=== PATIENT | female | born 1990 | race Caucasian/White ===

== ENCOUNTER → 2019-11-09 09:24 | Outpatient (BNVA) | payer MEDICAID, SELFPAY | PROVIDERS: Family Provider Family Medicine; PCP Family Medicine; Visit Provider Psychiatry & Neurology Psychiatry | DX: F32.9 Major depressive disorder, single episode, unspecified (principal); F33.1 Major depressive disorder, recurrent, moderate; F40.10 Social phobia, unspecified; F12.20 Cannabis dependence, uncomplicated; F33.2 Major depressive disorder, recurrent severe without psychotic features | CPT/HCPCS: 90792 ==

== ENCOUNTER → 2020-01-14 08:30 | Outpatient (BNVA) | payer MEDICAID, SELFPAY | PROVIDERS: Family Provider Family Medicine; PCP Family Medicine; Visit Provider Psychiatry & Neurology Psychiatry | DX: F33.1 Major depressive disorder, recurrent, moderate (principal); Z72.820 Sleep deprivation | CPT/HCPCS: 99214 ==

== ENCOUNTER → 2020-02-16 08:18 | Outpatient (BNVA) | payer MEDICAID, SELFPAY | PROVIDERS: Family Provider Family Medicine; PCP Family Medicine; Visit Provider Counselor Professional | DX: F32.9 Major depressive disorder, single episode, unspecified (principal); F41.9 Anxiety disorder, unspecified; Z72.820 Sleep deprivation | CPT/HCPCS: 90834 ==

== ENCOUNTER → 2020-02-23 08:19 | Outpatient (BNVA) | payer MEDICAID, SELFPAY | PROVIDERS: Family Provider Family Medicine; PCP Family Medicine; Visit Provider Counselor Professional | DX: Z72.820 Sleep deprivation (principal); F41.9 Anxiety disorder, unspecified; F32.9 Major depressive disorder, single episode, unspecified | CPT/HCPCS: 90834 ==

== ENCOUNTER → 2020-03-15 14:30 | Outpatient (BNVA) | payer MEDICAID, SELFPAY | PROVIDERS: Family Provider Family Medicine; PCP Family Medicine; Visit Provider Counselor Professional | DX: Z72.820 Sleep deprivation (principal); F41.9 Anxiety disorder, unspecified; F32.9 Major depressive disorder, single episode, unspecified | CPT/HCPCS: 90834 ==

== ENCOUNTER → 2020-04-05 08:21 | Outpatient (BNVA) | payer MEDICAID, SELFPAY | PROVIDERS: Family Provider Family Medicine; PCP Family Medicine; Visit Provider Counselor Professional | DX: Z72.820 Sleep deprivation (principal); F41.0 Panic disorder [episodic paroxysmal anxiety]; F32.0 Major depressive disorder, single episode, mild | CPT/HCPCS: 90834 ==

== ENCOUNTER → 2020-04-26 09:30 | Outpatient (BNVA) | payer MEDICAID, SELFPAY | PROVIDERS: Family Provider Family Medicine; PCP Family Medicine; Visit Provider Counselor Professional | DX: Z72.820 Sleep deprivation (principal); F32.9 Major depressive disorder, single episode, unspecified; F41.9 Anxiety disorder, unspecified | CPT/HCPCS: 90834 ==

== ENCOUNTER → 2020-05-18 08:47 | Outpatient (BNVA) | payer MEDICAID, SELFPAY | PROVIDERS: Family Provider Family Medicine; PCP Family Medicine; Visit Provider Counselor Professional | DX: Z72.820 Sleep deprivation (principal); F41.9 Anxiety disorder, unspecified; F32.9 Major depressive disorder, single episode, unspecified | CPT/HCPCS: 90834 ==

== ENCOUNTER → 2020-05-31 08:15 | Outpatient (BNVA) | payer MEDICAID, SELFPAY | PROVIDERS: Family Provider Family Medicine; PCP Family Medicine; Visit Provider Counselor Professional | DX: Z72.820 Sleep deprivation (principal); F32.9 Major depressive disorder, single episode, unspecified; F41.9 Anxiety disorder, unspecified | CPT/HCPCS: 90834 ==

== ENCOUNTER → 2020-06-09 08:15 | Outpatient (BNVA) | payer MEDICAID, SELFPAY | PROVIDERS: Family Provider Family Medicine; PCP Family Medicine; Visit Provider Counselor Professional | DX: Z72.820 Sleep deprivation (principal); F41.9 Anxiety disorder, unspecified; F32.9 Major depressive disorder, single episode, unspecified | CPT/HCPCS: 90834 ==

== ENCOUNTER → 2020-06-23 09:41 | Outpatient (BNVA) | payer MEDICAID, SELFPAY | PROVIDERS: Family Provider Family Medicine; PCP Family Medicine; Visit Provider Counselor Professional | DX: Z72.820 Sleep deprivation (principal); F41.9 Anxiety disorder, unspecified; F32.9 Major depressive disorder, single episode, unspecified | CPT/HCPCS: 90834; 90832 ==

== ENCOUNTER → 2020-07-13 10:49 | Outpatient (BNVA) | payer MEDICAID, SELFPAY | PROVIDERS: Family Provider Family Medicine; PCP Family Medicine; Visit Provider Psychiatry & Neurology Psychiatry | DX: F33.1 Major depressive disorder, recurrent, moderate (principal); F40.10 Social phobia, unspecified; Z72.820 Sleep deprivation | CPT/HCPCS: 99214 ==

== ENCOUNTER → 2020-07-27 11:01 | Outpatient (BNVA) | payer MEDICAID, SELFPAY | PROVIDERS: Family Provider Family Medicine; PCP Family Medicine; Visit Provider Counselor Professional | DX: Z72.820 Sleep deprivation (principal); F41.9 Anxiety disorder, unspecified; F32.9 Major depressive disorder, single episode, unspecified | CPT/HCPCS: 90834 ==

== ENCOUNTER → 2021-01-02 18:50 | Outpatient (BNVA) | payer MEDICAID, SELFPAY | PROVIDERS: Family Provider Family Medicine; PCP Family Medicine; Visit Provider Registered Nurse Neonatal Intensive Care | DX: Z20.822 Contact with and (suspected) exposure to COVID-19 (principal) | CPT/HCPCS: 87635 ==

== ENCOUNTER → 2021-10-02 13:43 | Outpatient (BNVA) | payer MEDICAID, SELFPAY | PROVIDERS: Family Provider Family Medicine; Visit Provider Family Medicine | DX: F40.10 Social phobia, unspecified (principal); B36.0 Pityriasis versicolor; K21.9 Gastro-esophageal reflux disease without esophagitis; Z13.6 Encounter for screening for cardiovascular disorders | CPT/HCPCS: 80053; 84443; 85025 ==

== ENCOUNTER → 2024-06-29 13:31 | Outpatient (BNVA) | payer OTHER, SELFPAY | PROVIDERS: Family Provider Family Medicine; PCP Family Medicine; Visit Provider Nurse Practitioner Psychiatric/Mental Health | DX: F41.1 Generalized anxiety disorder (principal); F33.2 Major depressive disorder, recurrent severe without psychotic features; Z03.89 Encounter for observation for other suspected diseases and conditions ruled out | CPT/HCPCS: 80053; 80061; 82306; 83036; 84439; 84443; 85025 ==

== ENCOUNTER → 2024-07-31 14:24 | Outpatient (BNVA) | payer MEDICAID, SELFPAY ==
[2024-07-02 14:51] VITALS: BP 127/66; BMI 37.2
== END ==
PROVIDERS: Family Provider Family Medicine; PCP Family Medicine
DX: R39.9 Unspecified symptoms and signs involving the genitourinary system (principal)
CPT/HCPCS: 81000

== ENCOUNTER → 2024-08-31 13:02 | Outpatient (BNVA) | payer MEDICAID, SELFPAY ==
[2024-07-02 14:51] VITALS: BP 127/66; BMI 37.2
== END ==
PROVIDERS: PCP Family Medicine; Visit Provider Family Medicine
DX: Z01.419 Encounter for gynecological examination (general) (routine) without abnormal findings (principal); R30.0 Dysuria; E55.9 Vitamin D deficiency, unspecified; N89.8 Other specified noninflammatory disorders of vagina; K59.01 Slow transit constipation; M25.562 Pain in left knee
CPT/HCPCS: 81000; 81513; 82306; 87086; 87481; 87491; 87591; 87624; 87661

== ENCOUNTER 2024-09-01 12:03 | Outpatient (CLI) | payer MEDICAID, SELFPAY ==
[2024-07-02 14:51] VITALS: BP 127/66; BMI 37.2
--- NOTE | 2024-09-01 12:08 | XRR_ITS ---
PROCEDURE INFORMATION: Exam: XR Left Knee Exam date and time: 09/01/2024 12:12 PM Age: 34 years old Clinical indication: Left; Posterior lt knee pain. Trouble w/ bending & walking; Additional info: Acute left knee pain TECHNIQUE: Imaging protocol: Radiologic exam of the left knee. Views: 3 views. COMPARISON: No relevant prior studies available. FINDINGS: Bones/joints: No displaced fracture nor dislocation seen. Minimal marginal spurring medial tibial plateau perhaps medial femoral condyle. Perhaps minimal narrowing medial compartment joint space. Slight suprapatellar fluid. Soft tissues: No metallic foreign body seen. XR/XR knee LT 3V* [id number] IMPRESSION: No displaced fracture seen.
== END 2024-09-01 12:04 | disposition home or self-care (01) ==
LOC: RAD 12:05
PROVIDERS: PCP Family Medicine; Visit Provider Family Medicine
DX: M25.562 Pain in left knee (principal); M25.861 Other specified joint disorders, right knee
CPT/HCPCS: 73562

== ENCOUNTER 2024-09-28 21:56 | Emergency (ER) | payer MEDICAID, SELFPAY ==
[2024-07-02 14:51] VITALS: BP 127/66; BMI 37.2
[2024-09-28 21:58] VITALS: BP 130/84; PULSE 103; RESP 20; TEMP 37.4; O2SAT 97; BMI 36.0
--- NOTE | 2024-09-28 23:42 | CTR_ITS ---
PROCEDURE INFORMATION: Exam: CTA Chest With Contrast Exam date and time: 09/29/2024 12:33 AM Age: 34 years old Clinical indication: Shortness of breath; Additional info: SOB, lightheadedness, tachycardia TECHNIQUE: Imaging protocol: Computed tomographic angiography of the chest with contrast. Exam focused on the arteries. 3D rendering (Not supervised by radiologist): MIP and/or 3D reconstructed images were created by the technologist. Radiation optimization: All CT scans at this facility use at least one of these dose optimization techniques: automated exposure control; mA and/or kV adjustment per patient size (includes targeted exams where dose is matched to clinical indication); or iterative reconstruction. Contrast material: OMNI 350; Contrast volume: 100 ml; Contrast route: INTRAVENOUS (IV); COMPARISON: No relevant prior studies available. RADIATION DOSE METRICS: Total DLP (mGy-cm): 416.09 FINDINGS: Pulmonary arteries: Normal. No pulmonary emboli. Aorta: Unremarkable. No aortic aneurysm. No aortic dissection. Lungs: No acute consolidation or pulmonary edema. Superior segment lingula there is a subpleural 5 mm pulmonary nodule. Bandlike atelectasis or scar at the left lung base. Pleural spaces: Unremarkable. No pneumothorax. No pleural effusion. Heart: Unremarkable. No cardiomegaly. No pericardial effusion. Lymph nodes: Unremarkable. No enlarged lymph nodes. Bones/joints: Unremarkable. No acute fracture. Soft tissues: Unremarkable. CT/CT angio chest PE protcl [id number] IMPRESSION: 1. No acute intrathoracic abnormalities. 2. Lingular 5 mm pulmonary nodule. Per Fleischner society criteria, optional follow-up CT in 12 months if patient is high risk.
[2024-09-28 23:43] VITALS: BP 121/91; BP 128/76; BP 137/83; PULSE 103; PULSE 115; PULSE 99
--- NOTE | 2024-09-28 23:43 | ECG_ITS ---
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 Measurements Intervals [place] Rate: 111 P: 24 HI: 127 QRS: 18 QRSD: 86 T: 4 QT: 313 QTc: 426 Interpretive Statements SINUS TACHYCARDIA NONSPECIFIC ST & T-WAVE ABNORMALITY ABNORMAL RHYTHM ECG No previous ECG available for comparison Electronically Signed On 09-29-2024 16:46:56 CDT by Melani Jacobs M.D. [id number]
[2024-09-28 23:51] LABS: Hematocrit 37.8 % (36-47); Hemoglobin 11.80 g/dL (11.27-16.99); Mean Corpuscular HGB Conc 31.2 g/dL (30-55); Mean Corpuscular Hemoglobin 26.9 pg (27-33); Mean Corpuscular Volume 86.1 fl (85-98); Nucleated Red Blood Cells % 0 %; Platelet Count 322 10^3/cmm (157-399); Red Blood Count 4.39 10^6/uL (3.85-5.65); White Blood Count 10.26 10^3/uL (3.29-11.43)
[2024-09-29 00:05] VITALS: BP 128/76; PULSE 91; RESP 18; O2SAT 99
[2024-09-29 00:05] LABS: Troponin(5th) Baseline < 6 ng/L (0-10)
[2024-09-29 00:13] LABS: Procalcitonin 0.04 ng/mL (0-0.5); Thyroid Stimulating Hormone 4.42 uIU/mL (0.27-4.20)
[2024-09-29 00:24] LABS: Alanine Aminotransferase 14 U/L (0-33); Albumin Level 4.1 g/dL (3.5-5.2); Alkaline Phosphatase 80 U/L (35-105); Anion Gap 19.2 (5-19); Aspartate Amino Transferase 11 U/L (0-32); Blood Urea Nitrogen 11 mg/dL (6-20); Calcium 9.5 mg/dL (8.5-10.5); Carbon Dioxide 23 mmol/L (22-29); Chloride 99 mmol/L (98-107); Creatinine Clr Calc Pharmacy 121.9291; Globulin 3.1 g/dL (1.3-4.6); Glucose 110 mg/dL (65-115); Magnesium 2.3 mg/dL (1.7-2.3); Osmolality Calculated 284 mOsm/kg (285-295); Potassium 4.2 mmol/L (3.5-5.1); Sodium 137 mmol/L (136-145); Total Protein 7.2 g/dL (6.6-8.7)
[2024-09-29] MEDS: iohexol 350 mg/mL 500 mL Btl (per mL) IV (00:34)
[2024-09-29 00:37] LABS: Lactic Sepsis W/Reflex 1.5 mmol/L (0.5-2.2)
[2024-09-29 00:51] LABS: Add Urine Microscopic? YES; Glucose Urine UA Negative (Normal); Nitrate Urine Negative (Negative)
[2024-09-29 00:52] LABS: Specific Gravity, Urine 1.032 (1.005-1.030)
[2024-09-29 01:31] LABS: Troponin 5 2HR < 6.0 ng/L (0-10); Troponin 5 2HR Delta 0 ABS# (0-10)
[2024-09-29 02:37] VITALS: BP 147/71; PULSE 90; RESP 20; O2SAT 98
[2024-09-29 04:06] VITALS: BP 138/81; PULSE 86; RESP 20; O2SAT 96
--- NOTE | 2024-09-29 04:08 | W.ED.SOB ---
Documented by User: Bebeto Farris MD 09/29/24 05:53 HPI - SOB/Dyspnea General: Chief Complaint: Shortness of Breath/Dyspnea Stated Complaint: SOB\Chest Hurts from Cough Time Seen by Provider: 09/28/24 22:54 History of Present Illness: HPI Narrative: 34-yo F with recent bronchitis and sinus infection completed antibiotics yet reports worsening cough productive of green/yellow sputum, 5/10 ?cats sitting on me? chest pain, and progressive SOB over several days. Additional Sx: fatigue, persistent hot flashes despite indoor AC 67 ?F, dizziness/near-syncope when exposed to heat, palpitations, headaches escalating to migraine, and four days of diarrhea. Describes episodic light-headedness severe enough that legs ?felt like jelly? while shopping on 08/23. Notes constant hunger pains unrelieved by eating. Reports heavy menses first two days each cycle. Denies smoking, alcohol, or drug use. No prior VTE, surgery, or recent travel. Family history of diabetes; father of [place]. O2 sat 98% and BP ?right on par? per provider; triage vitals show tachycardia, mild tachypnea, T 99.3 ?F. Concerned something serious is being missed; requests thorough evaluation. Related Data Previous Rx's ?Medication ?Instructions ?Recorded cholecalciferol (vitamin D3) 1,250 1,250 mcg PO .once weekly #8 caps 06/30/24 mcg (50,000 unit) capsule polyethylene glycol 3350 17 4 g PO BID #476 grams 07/19/24 gram/dose oral powder (Miralax) buspirone 10 mg tablet 20 mg (2 x 10 mg) PO BID #120 tabs 08/24/24 duloxetine 30 mg capsule,delayed 30 mg PO .q am #30 caps 08/24/24 release duloxetine 60 mg capsule,delayed 60 mg PO .q am #30 caps 08/24/24 release hydroxyzine pamoate 50 mg capsule 50 mg PO BID PRN anxiety #30 caps 08/24/24 ibuprofen 600 mg tablet 600 mg PO TID PRN pain #90 tabs 08/31/24 linaclotide 290 mcg capsule 290 mcg PO QAM #30 caps 08/31/24 (Linzess) metronidazole 500 mg tablet 500 mg PO BID #14 tabs 09/03/24 doxycycline hyclate 100 mg tablet 100 mg PO BID 7 days #14 tabs 09/14/24 prednisone 20 mg tablet 20 mg PO DAILY 5 days #5 tabs 09/14/24 Allergies Allergy/AdvReac Type Severity Reaction Status Date / Time escitalopram (From Lexapro) Allergy ADR-Headach Verified 09/28/24 22:08 e PFSH ED PFSH: Medical History (Updated 09/29/24 @ 06:11 by Federico Cooley MD) Vitamin D insufficiency Psychiatric care Complicated bereavement Problems related to lack of adequate sleep Social anxiety disorder MDD (major depressive disorder) Social History Smoking and tobacco/nicotine status: never used tobacco/nicotine Alcohol intake: never Substance/Drug Use: never Adopted: No Caregiver/support person: No Lives independently: No Household members: children Housing: House Marital status: Single Number of children: 2 Highest education level completed: 11th Grade service: No Current occupational status: unemployed Current occupational exposures/hazards: No Pets and animals: Yes Pets & animals: cat(s) and dog(s) Leisure activites: other Leisure activities details: watch TV Sexually active: Yes Current gender identity: Female Inocencia/Zoroastrian: Spiritism Special inocencia needs: No Agree to transfusion: Yes Female Reproductive History: Date of last menstrual period: 09/14/24 Para: 3 Physical Exam Const: COMMON NORMALS: no acute distress, patient oriented x3 and alert HENMT: COMMON NORMALS: normocephalic and atraumatic HEAD & SCALP: normocephalic and atraumatic Eye: COMMON NORMALS: Equal, round and reactive pupils present, EOMs intact bilaterally and no scleral icterus PUPIL: Yes Equal, round and reactive pupils present Resp: COMMON NORMALS: normal respiratory effort and No retractions Cardio: COMMON NORMALS: regular rate, regular rhythm and No murmurs present (Cardio) RATE: regular rate RHYTHM: regular rhythm GI: COMMON NORMALS: Normal to inspection, nondistended, normoactive bowel sounds present, Soft to palpation and non-tender PALPATION: Yes Soft to palpation Neuro: COMMON NORMALS: patient oriented x3 SENSORIUM/ORIENTATION: Yes alert Skin: COMMON NORMALS: no rashes or lesions noted GENERAL SKIN EXAM: no rashes or lesions noted Course Vital Signs: Vital signs: Vital Signs Temperature 99.3 F 09/28/24 21:58 Pulse Rate 80 09/29/24 06:08 Respiratory Rate 21 H 09/29/24 06:08 Blood Pressure 116/69 09/29/24 06:08 Pulse Oximetry 97 09/29/24 06:08 Oxygen Delivery Me thod Room Air 09/28/24 21:58 MDM - SOB/Dyspnea Medical Decision Making In summary, patient is a 34-year-old female from home seen for almost 2 months of cough additionally, she gets near syncopal with exertion and with coughing. The near syncope causes her significant concern and she is a and has young children in the home. Workup today is largely noncontributory. She arrived with a temperature just below a fever and tachycardia just above [address] of the chest does not show evidence of PE or pneumonia. White blood cell count is not elevated. Respiratory pathogen panel is negative. Procalcitonin is negative. Blood cultures were drawn. I do not detect emergent process but and concerned about her symptoms and contacted the hospitalist service to see if they felt admission would be advisable. Her symptoms may be cardiac in nature and perhaps echocardiogram could be beneficial. Pertinent details of the case were shared with the oncoming emergency physician who will help facilitate ultimate disposition once hospitalist has weighed in on the case. Lab Data 09/28/24 23:00 09/28/24 23:00 Labs/Radiology: Radiology Impressions Chest CTA 09/28/24 23:42 IMPRESSION: 1. No acute intrathoracic abnormalities. 2. Lingular 5 mm pulmonary nodule. Per Fleischner society criteria, optional follow-up CT in 12 months if patient is high risk. Laboratory Results WBC 10.26 10^3/uL (3.29-11.43) 09/28/24 23:00 RBC 4.39 10^6/uL (3.85-5.65) 09/28/24 23:00 Hgb 11.80 g/dL (11.27-16.99) 09/28/24 23:00 Hct 37.8 % (36-47) 09/28/24 23:00 MCV 86.1 fl (85-98) 09/28/24 23:00 MCH 26.9 pg (27-33) L 09/28/24 23:00 MCHC 31.2 g/dL (30-55) 09/28/24 23:00 RDW 14.3 % (12.1-15.1) 09/28/24 23:00 Plt Count 322 10^3/cmm (157-399) 09/28/24 23:00 MPV 10.2 fL (7.4-10.4) 09/28/24 23:00 Neut % (Auto) 72.4 % 09/28/24 23:00 Lymph % (Auto) 19.3 % 09/28/24 23:00 Sioux % (Auto) 5.8 % 09/28/24 23:00 Eos % (Auto) 1.7 % 09/28/24 23:00 Baso % (Auto) 0.4 % 09/28/24 23:00 Neut # (Auto) 7.44 10^3/uL (1.8-7.7) 09/28/24 23:00 Lymph # (Auto) 2.0 10^3/uL (0.8-4.8) 09/28/24 23:00 [place]oux # (Auto) 0.6 10^3/uL (0.2-0.9) 09/28/24 23:00 Eos # (Auto) 0.2 10^3/uL (0.0-0.8) 09/28/24 23:00 Baso # (Auto) 0.0 10^3/uL (0.0-0.1) 09/28/24 23:00 Nucleated RBC % (auto) 0 % 09/28/24 23:00 Nucleated RBCs # 0.0 /100WBC 09/28/24 23:00 Sodium 137 mmol/L (136-145) 09/28/24 23:00 Potassium 4.2 mmol/L (3.5-5.1) 09/28/24 23:00 Chloride 99 mmol/L (98-107) 09/28/24 23:00 Carbon Dioxide 23 mmol/L (22-29) 09/28/24 23:00 Anion Gap 19.2 (5-19) H 09/28/24 23:00 BUN 11 mg/dL (6-20) 09/28/24 23:00 Creatinine 0.8 mg/dL (0.5-0.9) 09/28/24 23:00 GFR Calculation 81.6 mL/min (90-130) L 09/28/24 23:00 Glucose 110 mg/dL (65-115) 09/28/24 23:00 Calculated Osmolality 284 mOsm/kg (285-295) L 09/28/24 23:00 Lactic Acid 1.5 mmol/L (0.5-2.2) 09/28/24 23:00 Calcium 9.5 mg/dL (8.5-10.5) 09/28/24 23:00 Phosphorus 3.7 mg/dL (2.5-4.5) 09/28/24 23:00 Magnesium 2.3 mg/dL (1.7-2.3) 09/28/24 23:00 Total Bilirubin 0.2 mg/dL (0.15-1.2) 09/28/24 23:00 AST 11 U/L (0-32) 09/28/24 23:00 ALT 14 U/L (0-33) 09/28/24 23:00 Alkaline Phosphatase 80 U/L (35-105) 09/28/24 23:00 Troponin T Baseline < 6 ng/L (0-10) 09/28/24 23:00 Troponin T 120 Minute < 6.0 ng/L (0-10) 09/29/24 01:05 Delta Troponin T 0 ABS# (0-10) 09/29/24 01:05 Total Protein 7.2 g/dL (6.6-8.7) 09/28/24 23:00 Albumin 4.1 g/dL (3.5-5.2) 09/28/24 23:00 Globulin 3.1 g/dL (1.3-4.6) 09/28/24 23:00 Procalcitonin 0.04 ng/mL (0-0.5) 09/28/24 23:00 TSH 4.42 uIU/mL (0.27-4.20) H 09/28/24 23:00 Urine Color Yellow (Yellow) 09/29/24 00:13 Urine Appearance Cloudy (CLEAR) A 09/29/24 00:13 Urine pH 5.0 (5-7) 09/29/24 00:13 Ur Specific Westhoff 1.032 (1.005-1.030) H 09/29/24 00:13 Urine Protein Trace (Negative) A 09/29/24 00:13 Urine Glucose (UA) Negative (Normal) 09/29/24 00:13 Urine Ketones Trace (Negative) 09/29/24 00:13 Urine Blood Negative (Negative) 09/29/24 00:13 Urine Nitrate Negative (Negative) 09/29/24 00:13 Urine Bilirubin Negative (Negative) 09/29/24 00:13 Urine Urobilinogen 1.0 mg/dL (Negative) 09/29/24 00:13 Ur Leukocyte Esterase Negative (Negative) 09/29/24 00:13 Urine RBC 0-2 /hpf (0-2) 09/29/24 00:13 Urine WBC 0-5 /hpf (0-5) 09/29/24 00:13 Ur Squamous Epith Cells 6-10 /hpf (0-5) 09/29/24 00:13 Amorphous Sediment Not Reportable 09/29/24 00:13 Urine Bacteria None seen /hpf (NONE) 09/29/24 00:13 Hyaline Casts 1.65 /lpf 09/29/24 00:13 Adenovirus (PCR) Not detected (NOT DETECT) 09/29/24 02:26 C. pneumoniae DNA (PCR) Not detected (NOT DETECT) 09/29/24 02:26 Coronavirus 229E (PCR) Not detected (NOT DETECT) 09/29/24 02:26 Monoscreen Negative (Negative) 09/28/24 23:00 Human Metapneumovir PCR Not detected (NOT DETECT) 09/29/24 02:26 Influenza A (H1) PCR Not detected (NOT DETECT) 09/29/24 02:26 Influ A (H1/09) PCR Not detected (NOT DETECT) 09/29/24 02:26 Influenza A (H3) PCR Not detected (NOT DETECT) 09/29/24 02:26 Influenza Type A (PCR) Not detected (NOT DETECT) 09/29/24 02:26 Influenza Type B (PCR) Not detected (NOT DETECT) 09/29/24 02:26 M. pneumoniae (PCR) Not detected (NOT DETECT) 09/29/24 02:26 Parainfluenza 1 (PCR) Not detected (NOT DETECT) 09/29/24 02:26 Parainfluenza 2 (PCR) Not detected (NOT DETECT) 09/29/24 02:26 Parainfluenza 3 (PCR) Not detected (NOT DETECT) 09/29/24 02:26 Parainfluenza 4 (PCR) Not detected (NOT DETECT) 09/29/24 02:26 RSV Type A (PCR) Not detected (NOT DETECT) 09/29/24 02:26 RSV Type B (PCR) Not detected (NOT DETECT) 09/29/24 02:26 Entero/Rhino (PCR) Not detected (NOT DETECT) 09/29/24 02:26 SARS-CoV-2 (PCR) Not detected (NOT DETECT) 09/29/24 02:26 EKG Data EKG 1: Interpretation: Time?0011?sinus rhythm, rate of 88, no ST segment elevation or depression, no T wave inversions, intervals within normal limits. QTc = 397 Discharge Plan Discharge Patient Disposition: Home Clinical Impression: Upper respiratory infection Condition: Stable Prescriptions: No Action prednisone 20 mg tablet 20 mg PO DAILY 5 Days Qty: 5 0RF doxycycline hyclate 100 mg tablet 100 mg PO BID 7 Days Qty: 14 0RF polyethylene glycol 3350 [Miralax] 17 gram/dose powder 4 g PO BID Qty: 476 0RF ibuprofen 600 mg tablet 600 mg PO TID PRN (Reason: pain) Qty: 90 0RF Rx Instructions: Take with food Linzess 290 mcg capsule 290 mcg PO QAM Qty: 30 1RF hydroxyzine pamoate 50 mg capsule 50 mg PO BID PRN (Reason: anxiety) Qty: 30 3RF Rx Instructions: Take one capsule by mouth twice daily, if needed for anxiety duloxetine 60 mg capsule,delayed release(DR/EC) 60 mg PO .q am Qty: 30 1RF Rx Instructions: Take one capsule every AM with the 30 mg dose duloxetine 30 mg capsule,delayed release(DR/EC) 30 mg PO .q am Qty: 30 1RF Rx Instructions: Take one capsule every AM with the 60 mg dose buspirone 10 mg tablet 20 mg PO BID Qty: 120 1RF Rx Instructions: Take two tablets twice a day- noon and evening cholecalciferol (vitamin D3) 1,250 mcg (50,000 unit) capsule 1,250 mcg PO .once weekly Qty: 8 0RF Rx Instructions: Tale one capsule by mouth once a week for eight weeks metronidazole 500 mg tablet 500 mg PO BID Qty: 14 0RF Discharge Orders: Discharge ED (Routine); Ordered 09/29/24 Ordered By: Federico Cooley Referrals: Sparkle Oh DO [Primary Care Provider, Family Practice] - 4-7 days Discharge Diet: Advance as tolerated Discharge Activity: Resume usual activity Patient Instructions: Upper Respiratory Infection (ED) Print Language: Latvian Coding Level of Care Code ED Vending Machine Mechanic for Chg Fwd Documented by User: Federico Cooley MD 09/29/24 06:23 HPI - SOB/Dyspnea General: Chief Complaint: Shortness of Breath/Dyspnea Stated Complaint: SOB\Chest Hurts from Cough Time Seen by Provider: 09/28/24 22:54 Related Data Previous Rx's ?Medication ?Instructions ?Recorded cholecalciferol (vitamin D3) 1,250 1,250 mcg PO .once weekly #8 caps 06/30/24 mcg (50,000 unit) capsule polyethylene glycol 3350 17 4 g PO BID #476 grams 07/19/24 gram/dose oral powder (Miralax) buspirone 10 mg tablet 20 mg (2 x 10 mg) PO BID #120 tabs 08/24/24 duloxetine 30 mg capsule,delayed 30 mg PO .q am #30 caps 08/24/24 release duloxetine 60 mg capsule,delayed 60 mg PO .q am #30 caps 08/24/24 release hydroxyzine pamoate 50 mg capsule 50 mg PO BID PRN anxiety #30 caps 08/24/24 ibuprofen 600 mg tablet 600 mg PO TID PRN pain #90 tabs 08/31/24 linaclotide 290 mcg capsule 290 mcg PO QAM #30 caps 08/31/24 (Linzess) metronidazole 500 mg tablet 500 mg PO BID #14 tabs 09/03/24 doxycycline hyclate 100 mg tablet 100 mg PO BID 7 days #14 tabs 09/14/24 prednisone 20 mg tablet 20 mg PO DAILY 5 days #5 tabs 09/14/24 Allergies Allergy/AdvReac Type Severity Reaction Status Date / Time escitalopram (From Lexapro) Allergy ADR-Headach Verified 09/28/24 22:08 e PFSH ED PFSH: Medical History (Updated 09/29/24 @ 06:11 by Federico Cooley MD) Vitamin D insufficiency Psychiatric care Complicated bereavement Problems related to lack of adequate sleep Social anxiety disorder MDD (major depressive disorder) Social History Smoking and tobacco/nicotine status: never used tobacco/nicotine Alcohol intake: never Substance/Drug Use: never Adopted: No Caregiver/support person: No Lives independently: No Household members: children Housing: House Marital status: Single Number of children: 2 Highest education level completed: 11th Grade service: No Current occupational status: unemployed Current occupational exposures/hazards: No Pets and animals: Yes Pets & animals: cat(s) and dog(s) Leisure activites: other Leisure activities details: watch TV Sexually active: Yes Current gender identity: Female Inoecncia/Zoroastrian: Spiritism Special inocencia needs: No Agree to transfusion: Yes Course Vital Signs: Vital signs: Vital Signs Temperature 99.3 F 09/28/24 21:58 Pulse Rate 80 09/29/24 06:08 Respiratory Rate 21 H 09/29/24 06:08 Blood Pressure 116/69 09/29/24 06:08 Pulse Oximetry 97 09/29/24 06:08 Oxygen Delivery Me thod Room Air 09/28/24 21:58 MDM - SOB/Dyspnea Medical Decision Making In summary, patient is a 34-year-old female from home seen for almost 2 months of cough additionally, she gets near syncopal with exertion and with coughing. The near syncope causes her significant concern and she is a and has young children in the home. Workup today is largely noncontributory. She arrived with a temperature just below a fever and tachycardia just above [address] of the chest does not show evidence of PE or pneumonia. White blood cell count is not elevated. Respiratory pathogen panel is negative. Procalcitonin is negative. Blood cultures were drawn. I do not detect emergent process but and concerned about her symptoms and contacted the hospitalist service to see if they felt admission would be advisable. Her symptoms may be cardiac in nature and perhaps echocardiogram could be beneficial. Pertinent details of the case were shared with the oncoming emergency physician who will help facilitate ultimate disposition once hospitalist has weighed in on the case. Patient seen by hospitalist blood work is normal no signs of infection she feels improved she is to follow-up with her PCP return if worsening. Lab Data 09/28/24 23:00 09/28/24 23:00 Labs/Radiology: Radiology Impressions Chest CTA 09/28/24 23:42 IMPRESSION: 1. No acute intrathoracic abnormalities. 2. Lingular 5 mm pulmonary nodule. Per Fleischner society criteria, optional follow-up CT in 12 months if patient is high risk. Laboratory Results WBC 10.26 10^3/uL (3.29-11.43) 09/28/24 23:00 RBC 4.39 10^6/uL (3.85-5.65) 09/28/24 23:00 Hgb 11.80 g/dL (11.27-16.99) 09/28/24 23:00 Hct 37.8 % (36-47) 09/28/24 23:00 MCV 86.1 fl (85-98) 09/28/24 23:00 MCH 26.9 pg (27-33) L 09/28/24 23:00 MCHC 31.2 g/dL (30-55) 09/28/24 23:00 RDW 14.3 % (12.1-15.1) 09/28/24 23:00 Plt Count 322 10^3/cmm (157-399) 09/28/24 23:00 MPV 10.2 fL (7.4-10.4) 09/28/24 23:00 Neut % (Auto) 72.4 % 09/28/24 23:00 Lymph % (Auto) 19.3 % 09/28/24 23:00 Sioux % (Auto) 5.8 % 09/28/24 23:00 Eos % (Auto) 1.7 % 09/28/24 23:00 Baso % (Auto) 0.4 % 09/28/24 23:00 Neut # (Auto) 7.44 10^3/uL (1.8-7.7) 09/28/24 23:00 Lymph # (Auto) 2.0 10^3/uL (0.8-4.8) 09/28/24 23:00 Sioux # (Auto) 0.6 10^3/uL (0.2-0.9) 09/28/24 23:00 Eos # (Auto) 0.2 10^3/uL (0.0-0.8) 09/28/24 23:00 Baso # (Auto) 0.0 10^3/uL (0.0-0.1) 09/28/24 23:00 Nucleated RBC % (auto) 0 % 09/28/24 23:00 Nucleated RBCs # 0.0 /100WBC 09/28/24 23:00 Sodium 137 mmol/L (136-145) 09/28/24 23:00 Potassium 4.2 mmol/L (3.5-5.1) 09/28/24 23:00 Chloride 99 mmol/L (98-107) 09/28/24 23:00 Carbon Dioxide 23 mmol/L (22-29) 09/28/24 23:00 Anion Gap 19.2 (5-19) H 09/28/24 23:00 BUN 11 mg/dL (6-20) 09/28/24 23:00 Creatinine 0.8 mg/dL (0.5-0.9) 09/28/24 23:00 GFR Calculation 81.6 mL/min (90-130) L 09/28/24 23:00 Glucose 110 mg/dL (65-115) 09/28/24 23:00 Calculated Osmolality 284 mOsm/kg (285-295) L 09/28/24 23:00 Lactic Acid 1.5 mmol/L (0.5-2.2) 09/28/24 23:00 Calcium 9.5 mg/dL (8.5-10.5) 09/28/24 23:00 Phosphorus 3.7 mg/dL (2.5-4.5) 09/28/24 23:00 Magnesium 2.3 mg/dL (1.7-2.3) 09/28/24 23:00 Total Bilirubin 0.2 mg/dL (0.15-1.2) 09/28/24 23:00 AST 11 U/L (0-32) 09/28/24 23:00 ALT 14 U/L (0-33) 09/28/24 23:00 Alkaline Phosphatase 80 U/L (35-105) 09/28/24 23:00 Troponin T Baseline < 6 ng/L (0-10) 07/15/25 23:00 Troponin T 120 Minute < 6.0 ng/L (0-10) 09/29/24 01:05 Delta Troponin T 0 ABS# (0-10) 09/29/24 01:05 Total Protein 7.2 g/dL (6.6-8.7) 09/28/24 23:00 Albumin 4.1 g/dL (3.5-5.2) 09/28/24 23:00 Globulin 3.1 g/dL (1.3-4.6) 09/28/24 23:00 Procalcitonin 0.04 ng/mL (0-0.5) 09/28/24 23:00 TSH 4.42 uIU/mL (0.27-4.20) H 09/28/24 23:00 Urine Color Yellow (Yellow) 09/29/24 00:13 Urine Appearance Cloudy (CLEAR) A 09/29/24 00:13 Urine pH 5.0 (5-7) 09/29/24 00:13 Ur Specific Westhoff 1.032 (1.005-1.030) H 09/29/24 00:13 Urine Protein Trace (Negative) A 09/29/24 00:13 Urine Glucose (UA) Negative (Normal) 09/29/24 00:13 Urine Ketones Trace (Negative) 09/29/24 00:13 Urine Blood Negative (Negative) 09/29/24 00:13 Urine Nitrate Negative (Negative) 09/29/24 00:13 Urine Bilirubin Negative (Negative) 09/29/24 00:13 Urine Urobilinogen 1.0 mg/dL (Negative) 09/29/24 00:13 Ur Leukocyte Esterase Negative (Negative) 09/29/24 00:13 Urine RBC 0-2 /hpf (0-2) 09/29/24 00:13 Urine WBC 0-5 /hpf (0-5) 09/29/24 00:13 Ur Squamous Epith Cells 6-10 /hpf (0-5) 09/29/24 00:13 Amorphous Sediment Not Reportable 09/29/24 00:13 Urine Bacteria None seen /hpf (NONE) 09/29/24 00:13 Hyaline Casts 1.65 /lpf 09/29/24 00:13 Adenovirus (PCR) Not detected (NOT DETECT) 09/29/24 02:26 C. pneumoniae DNA (PCR) Not detected (NOT DETECT) 09/29/24 02:26 Coronavirus 229E (PCR) Not detected (NOT DETECT) 09/29/24 02:26 Monoscreen Negative (Negative) 09/28/24 23:00 Human Metapneumovir PCR Not detected (NOT DETECT) 09/29/24 02:26 Influenza A (H1) PCR Not detected (NOT DETECT) 09/29/24 02:26 Influ A (H1/09) PCR Not detected (NOT DETECT) 09/29/24 02:26 Influenza A (H3) PCR Not detected (NOT DETECT) 09/29/24 02:26 Influenza Type A (PCR) Not detected (NOT DETECT) 09/29/24 02:26 Influenza Type B (PCR) Not detected (NOT DETECT) 09/29/24 02:26 M. pneumoniae (PCR) Not detected (NOT DETECT) 09/29/24 02:26 Parainfluenza 1 (PCR) Not detected (NOT DETECT) 09/29/24 02:26 Parainfluenza 2 (PCR) Not detected (NOT DETECT) 09/29/24 02:26 Parainfluenza 3 (PCR) Not detected (NOT DETECT) 09/29/24 02:26 Parainfluenza 4 (PCR) Not detected (NOT DETECT) 09/29/24 02:26 RSV Type A (PCR) Not detected (NOT DETECT) 09/29/24 02:26 RSV Type B (PCR) Not detected (NOT DETECT) 09/29/24 02:26 Entero/Rhino (PCR) Not detected (NOT DETECT) 09/29/24 02:26 SARS-CoV-2 (PCR) Not detected (NOT DETECT) 09/29/24 02:26 All radiology interpretation(s) finalized by discharge Discharge Plan Discharge Patient Disposition: Home Clinical Impression: Upper respiratory infection Condition: Stable Prescriptions: No Action prednisone 20 mg tablet 20 mg PO DAILY 5 Days Qty: 5 0RF doxycycline hyclate 100 mg tablet 100 mg PO BID 7 Days Qty: 14 0RF polyethylene glycol 3350 [Miralax] 17 gram/dose powder 4 g PO BID Qty: 476 0RF ibuprofen 600 mg tablet 600 mg PO TID PRN (Reason: pain) Qty: 90 0RF Rx Instructions: Take with food Linzess 290 mcg capsule 290 mcg PO QAM Qty: 30 1RF hydroxyzine pamoate 50 mg capsule 50 mg PO BID PRN (Reason: anxiety) Qty: 30 3RF Rx Instructions: Take one capsule by mouth twice daily, if needed for anxiety duloxetine 60 mg capsule,delayed release(DR/EC) 60 mg PO .q am Qty: 30 1RF Rx Instructions: Take one capsule every AM with the 30 mg dose duloxetine 30 mg capsule,delayed release(DR/EC) 30 mg PO .q am Qty: 30 1RF Rx Instructions: Take one capsule every AM with the 60 mg dose buspirone 10 mg tablet 20 mg PO BID Qty: 120 1RF Rx Instructions: Take two tablets twice a day- noon and evening cholecalciferol (vitamin D3) 1,250 mcg (50,000 unit) capsule 1,250 mcg PO .once weekly Qty: 8 0RF Rx Instructions: Tale one capsule by mouth once a week for eight weeks metronidazole 500 mg tablet 500 mg PO BID Qty: 14 0RF Discharge Orders: Discharge ED (Routine); Ordered 09/29/24 Ordered By: Federico Cooley Referrals: Sparkle Oh DO [Primary Care Provider, Family Practice] - 4-7 days Discharge Diet: Advance as tolerated Discharge Activity: Resume usual activity Patient Instructions: Upper Respiratory Infection (ED) Print Language: Latvian Coding Level of Care Code ED Vending Machine Mechanic for James Medeiros
[2024-09-29 04:18] LABS: Coronavirus 229E,HKU1,NL63,OC4 Not Detected (NOT DETECT); Parainfluenza Virus Type 1 Not Detected (NOT DETECT); Parainfluenza Virus Type 2 Not Detected (NOT DETECT); Parainfluenza Virus Type 3 Not Detected (NOT DETECT); Parainfluenza Virus Type 4 Not Detected (NOT DETECT); SARS-COV-2 Not Detected (NOT DETECT)
[2024-09-29 05:41] VITALS: BP 127/81; PULSE 101; RESP 20; O2SAT 99
[2024-09-29 06:08] VITALS: BP 116/69; PULSE 80; RESP 21; O2SAT 97
[2024-09-29 06:22] VITALS: BP 116/69; PULSE 80; O2SAT 98
== END 2024-09-29 06:20 | disposition home or self-care (01) ==
PROVIDERS: Student in an Organized Health Care Education/Training Program; Emergency Provider Emergency Medicine; PCP Family Medicine
DX: J06.9 Acute upper respiratory infection, unspecified (principal); Z11.52 Encounter for screening for COVID-19
CPT/HCPCS: 36415; 71275; 80053; 81001; 83605; 83735; 84100; 84145; 84443; 84484; 85025; 86308; 87040; 87486; 87581; 87633; 93005; 96361; 96374; 99285; J1885; J7040; J7120

== ENCOUNTER → 2024-10-14 15:03 | Outpatient (BNVA) | payer MEDICAID, SELFPAY ==
[2024-07-02 14:51] VITALS: BP 127/66; BMI 37.2
== END ==
PROVIDERS: PCP Family Medicine; Visit Provider Nurse Practitioner Psychiatric/Mental Health
DX: R53.83 Other fatigue (principal)
CPT/HCPCS: 84439; 84443; 84481

== ENCOUNTER → 2024-11-29 15:52 | Outpatient (BNVA) | payer MEDICAID, SELFPAY ==
[2024-07-02 14:51] VITALS: BP 127/66; BMI 37.2
== END ==
PROVIDERS: PCP Family Medicine; Visit Provider Nurse Practitioner Psychiatric/Mental Health
DX: Z03.89 Encounter for observation for other suspected diseases and conditions ruled out (principal)
CPT/HCPCS: 84443

== ENCOUNTER 2024-12-20 20:05 | Outpatient (CLI) | payer MEDICAID, SELFPAY ==
[2024-07-02 14:51] VITALS: BP 127/66; BMI 37.2
== END 2024-12-20 20:06 | disposition home or self-care (01) ==
LOC: SLEEP 20:06
PROVIDERS: PCP Family Medicine; Referring Provider Nurse Practitioner Psychiatric/Mental Health; Visit Provider Internal Medicine Pulmonary Disease
DX: R53.83 Other fatigue (principal); R06.83 Snoring; G47.61 Periodic limb movement disorder
CPT/HCPCS: 95810